=== PATIENT | female | born 1955 | race Caucasian/White ===

== ENCOUNTER 2021-02-20 19:27 | Emergency (ER) | payer OTHER ==
[~2021-02-20] VITALS: Ht 172.7 cm; Wt 61.5 kg
[~2021-02-20 19:27] MED LIST: LEVO100T5 PO; [UNRECOGNIZED DRUG - OTHER] PO; [UNRECOGNIZED DRUG - OTHER] PO
--- NOTE | 2021-02-20 19:53 | NUR ---
nil x 1
[2021-02-20] MEDS ORDERED: PROPARACAINE OPHTH 0.5%, 15ML RIGHTEYE STA (19:55)
[2021-02-20] MEDS ORDERED: FLUORESCEIN OPHTHALMIC 1 MG STRIP RIGHTEYE ONE (20:00)
[2021-02-20] MEDS ORDERED: FLUORESCEIN OPHTHALMIC 1 MG STRIP ONE (22:01)
--- NOTE | 2021-02-20 22:01 | NUR ---
attempted va's. pt states she did not bring her glassess. unable to read board with both her eyes. states unable to open right eye.
[2021-02-20] MEDS ORDERED: PROPARACAINE OPHTH 0.5%, 15ML ONE (22:02)
--- NOTE | 2021-02-20 22:05 | NUR ---
INITIAL PT CONTACT. PT PRESENTS TO ED C/O EYE PAIN. PT STATES "I WAS MOWING THE LAWN AND SOMETHING GOT IN MY EYE. GRASS OR DIRT OR SOMETHING. IT HURTS SO BAD. I FLUSHED IT A LOT BUT THE PAIN IS STILL THERE AND I CAN'T OPEN IT." PT STATES SHE NORMALLY WEARS GLASSES BUT DOESN'T HAVE THEM, NO VISUAL CHANGES. PT SITTING UPRIGHT ON J[place] TIWARI, VSS. PT DENIES ANY NEEDS AT THIS TIME. CALL LIGHT AND BELONGINGS WITHIN REACH.
--- NOTE | 2021-02-20 22:11 | NUR ---
ERP AT BEDSIDE
[2021-02-21] VITALS: BP 122/87
--- NOTE | 2021-02-21 | NUR ---
Patient given discharge instructions and they have confirmed that they understand the instructions. Patient ambulatory with steady gait. NAD, all questions answered appropriately, denies additional needs at this time. No personal belongings left in room after discharge.
== END 2021-02-21 00:02 | disposition home or self-care (01) ==
LOC: ED 22:26
DX: H57.11 Ocular pain, right eye (principal)
CPT/HCPCS: 99283